=== PATIENT | female | born 1980 | race Caucasian/White ===

== ENCOUNTER 2025-03-28 19:21 | Emergency (ER) | payer MEDICAID, SELFPAY ==
[2025-03-28 19:25] VITALS: BP 136/94; PULSE 97; TEMP 37.5; O2SAT 95; BMI 35.1
--- NOTE | 2025-03-28 19:50 | ED.EXTPRO1 ---
HPI - Extremity Problem General Chief complaint: Extremity Problem, Nontraumatic Stated complaint: UE PAIN Time Seen by Provider: 03/28/25 19:39 Source: patient Mode of arrival: walk-in Limitations: no limitations History of Present Illness HPI Narrative: This 44-year-old female who is right-hand dominant presents for evaluation of bruising to the right distal upper arm and forearm area after donating plasma on Saturday. She states they had to stop the procedure because it stopped running. They then finished it up on her left arm. On Saturday she started having bruising emanating from the needle insertion site in her antecubital fossa and since that time she has had increasing bruising distally and proximally from the needle insertion site. She does not have any numbness or tingling in her hand. She states at times the pain radiates up into her neck. She has been using Tylenol without relief of her pain. She has also been using ice and warm compresses without significant improvement. Related Data Allergies Allergy/AdvReac Type Severity Reaction Status Date / Time codeine AdvReac Mild Hives Verified 03/28/25 19:25 Review of Systems ROS Status of ROS 10 or more systems reviewed and unremarkable except as noted in history and below PFSH PFSH Social History Little interest or pleasure in doing things: not at all Feeling down, depressed, or hopeless: not at all Exam Narrative Exam Narrative: Vital signs and Nursing Notes reviewed: Is afebrile with a normal pulse, blood pressure is mildly elevated 136/94, she is not hypoxic with pulse ox of 95% on room air General: Awake, alert, oriented, no acute distress, lying comfortably on the stretcher HEENT: Normocephalic atraumatic, mucous membranes are moist and pink, eyes are clear, normal conjunctiva, vision is grossly intact Neck: Supple, no pulsatile masses or other notable abnormality Chest: Lungs are clear to auscultation with good air entry, there is no wheezing rhonchi or rales appreciated no accessory muscle use, patient is speaking in complete sentences-no chest wall tenderness to palpation CVS: Regular rate and rhythm S1-S2, no murmurs rubs or gallops, pulses are brisk and equal bilaterally Extremities: Moving all extremities, there is tenderness and bruising distally from the antecubital fossa to the mid forearm. A needle insertion site is present in the antecubital fossa. Radial and brachial pulses are brisk and equal. There is also bruising proximally from the antecubital fossa to the mid lower humerus area. Fingers are warm and sensate. Skin: Normal in appearance with ecchymosis of the right upper extremity as described above Neuro: No focal deficits Constitutional Vital Signs, click to edit/add: Last Vital Signs Temp 99.5 F 03/28/25 19:25 Pulse 97 H 03/28/25 19:25 Resp 18 03/28/25 19:25 BP 136/94 H 03/28/25 19:25 Pulse Ox 95 03/28/25 19:25 O2 Del Method Room Air 03/28/25 19:25 Course Vital Signs Vital signs: Vital Signs Temperature 99.5 F 03/28/25 19:25 Pulse Rate 97 H 03/28/25 19:25 Respiratory Rate 18 03/28/25 19:25 Blood Pressure 136/94 H 03/28/25 19:25 Pulse Oximetry 95 03/28/25 19:25 Oxygen Delivery Method Room Air 03/28/25 19:25 Temperature 99.5 F 03/28/25 19:25 Pulse Rate 97 H 03/28/25 19:25 Respiratory Rate 18 03/28/25 19:25 Blood Pressure 136/94 H 03/28/25 19:25 Pulse Oximetry 95 03/28/25 19:25 Oxygen Delivery Method Room Air 03/28/25 19:25 MDM - Extremity (Nontraumatic) MDM Narrative Medical decision making narrative: This 44-year-old female presents for evaluation of bruising and pain in the right arm after donating plasma on Saturday. The procedure had to be stopped because the infusion had clotted off according to the patient. It was then switched to the left side for completion. On Saturday she started developing some pain swelling and bruising to the right arm including the distal humerus and proximal radius ulna area. This appears to be emanating from the insertion site from the needle in the antecubital fossa. Her fingers are warm and sensate. Pulses are brisk and equal. I explained to the patient that ultrasound is not available at this time to further evaluate this injury. She is concerned that she may have a DVT but I explained to her that this is unlikely based on the fact that this is superficial. I did order a CBC, BMP and D-dimer. She has a normal white count and hemoglobin is stable. Electrolytes are normal. D-dimer is normal at 0.25. The results of these findings were discussed with her. I explained to her that this makes her having a deep vein thrombosis less likely and this is more likely a superficial hematoma from the needle insertion. An x-ray was ordered to rule out foreign body or any other soft tissue or bony abnormality of the extremity. X-ray is negative for bony abnormality, soft tissue swelling, stranding or any foreign body. She is agreeable to following up tomorrow at 8 AM for an outpatient ultrasound of this extremity. This was scheduled with radiology. She was medicated with a dose of Muse stating that Tylenol was not helping her pain. She will be discharged home with 2 Muse with recommendation for close follow-up tomorrow and warm compresses to the ecchymotic area on her arm. Lab Data Labs: Lab Results 03/28/25 Range/Units 20:05 WBC 7.6 (4.0-11.0) 10^3/uL RBC 4.72 (4.20-5.40) 10^6/uL Hgb 15.2 (12.0-16.0) g/dL Hct 43.7 (36.0-48.0) % MCV 92.6 (81.0-99.0) fL MCH 32.2 (26.7-34.0) pg MCHC 34.8 (29.9-35.2) g/dL RDW 12.9 (11.0-15.0) % Plt Count 297 (150-450) 10^3/uL MPV 9.0 L (9.5-13.5) fL Neut % (Auto) 66.0 (43.0-75.0) % Lymph % (Auto) 24.4 (20.5-60.0) % [place] % (Auto) 7.5 (1.7-12.0) % Eos % (Auto) 1.3 (0.9-7.0) % Baso % (Auto) 0.4 (0.2-2.0) % Neut # (Auto) 5.0 (1.4-6.5) 10^3/uL Lymph # (Auto) 1.9 (1.2-3.8) 10^3/uL [place] # (Auto) 0.6 (0.3-0.8) 10^3/uL Eos # (Auto) 0.1 (0.0-0.7) 10^3/uL Baso # (Auto) 0.0 (0.0-0.1) 10^3/uL Abs Immat Gran (auto) 0.03 (0.00-0.03) 10^3/uL Imm/Tot Granulo (auto) 0.4 (0.0-0.5) % D-Dimer 0.25 (<=0.59) mg/L FEU Sodium 139 (136-145) mmol/L Potassium 4.4 (3.5-5.1) mmol/L Chloride 103 (98-107) mmol/L Carbon Dioxide 29.6 (21.0-32.0) mmol/L Anion Gap 10.8 BUN 15.0 (7.0-18.0) mg/dL Creatinine 0.82 (0.55-1.02) mg/dL Est GFR ( Amer) >60 (>=60 mL/min/1.73m^2) Est GFR (Non-Af Amer) >60 (>=60 mL/min/1.73m^2) BUN/Creatinine Ratio 18.3 Glucose 109 H (74-106) mg/dL Calcium 8.0 L (8.5-10.1) mg/dL Discharge Plan Discharge Chief Complaint: Extremity Problem, Nontraumatic Clinical Impression: Hematoma of right upper extremity Patient Disposition: Home, Self-Care Time of Disposition Decision: 20:39 Print Language: Spanish Instructions: Hematoma (ED) Referrals: CATHY FRANCIS [Primary Care Provider] - 1 week Discharge Date/Time: 03/28/25 21:01
[2025-03-28 20:13] LABS: Basophils Percent Auto 0.4 % (0.2-2.0); Eosinophils Absolute Auto 0.1 10^3/uL (0.0-0.7); Eosinophils Percent Auto 1.3 % (0.9-7.0); Hematocrit 43.7 % (36.0-48.0); Hemoglobin 15.2 g/dL (12.0-16.0); Immature Granulocytes Abs Auto 0.03 10^3/uL (0.00-0.03); Immature Granulocytes Pct Auto 0.4 % (0.0-0.5); Lymphocytes Absolute Auto 1.9 10^3/uL (1.2-3.8); Lymphocytes Percent Auto 24.4 % (20.5-60.0); Mean Corpuscular HGB Conc 34.8 g/dL (29.9-35.2); Mean Corpuscular Hemoglobin 32.2 pg (26.7-34.0); Mean Corpuscular Volume 92.6 fL (81.0-99.0); Monocytes Absolute Auto 0.6 10^3/uL (0.3-0.8); Monocytes Percent Auto 7.5 % (1.7-12.0); Platelet Count 297 10^3/uL (150-450); Red Blood Count 4.72 10^6/uL (4.20-5.40); Red Cell Distribution Width 12.9 % (11.0-15.0); White Blood Count 7.6 10^3/uL (4.0-11.0)
[2025-03-28] MEDS: ONDANSETRON 4 MG RAPDIS TABLET SL (20:19)
[2025-03-28] MEDS: HYDROCODONE/ACET 5-325 MG TABLET 1 TAB PO (20:19)
[2025-03-28 20:22] LABS: Anion Gap 10.8; BUN Creatinine Ratio 18.3; Carbon Dioxide 29.6 mmol/L (21.0-32.0); Chloride 103 mmol/L (98-107); Estimated GFR (African America >60 (>=60 mL/min/1.73m^2); Estimated GFR (Non-African Ame >60 (>=60 mL/min/1.73m^2); Glucose 109 mg/dL (74-106); Potassium 4.4 mmol/L (3.5-5.1); Sodium 139 mmol/L (136-145)
[2025-03-28 20:27] LABS: D Dimer 0.25 mg/L FEU (<=0.59)
[2025-03-28] MEDS: HYDROCODONE/ACET 5-325 MG TABLET 2 TAB PO (20:59)
== END 2025-03-28 21:01 | disposition home or self-care (01) ==
PROVIDERS: Emergency Provider Emergency Medicine; PCP Family Medicine
DX: S40.021A Contusion of right upper arm, initial encounter (principal); X58.XXXA Exposure to other specified factors, initial encounter
CPT/HCPCS: 36415; 73080; 80048; 85025; 85378; 99284; Q0162